=== PATIENT | female | born 1975 | race Asian ===

== ENCOUNTER 2017-12-23 13:05 | Emergency (ER) | payer MEDICAID, OTHER ==
--- NOTE | 2017-12-23 13:08 | ED Physician Chart ---
ED Chief Complaint/HPI - Patient Information Date Seen:: 12/23/17 Time Seen:: 13:08 Chief Complaint:: UTI History of Present Illness:: 42 yo female had headache for 4 days, cough productive of green sputum for 3 weeks. She had body ache, pelvic pain, urinary urgency and frequency for 5 days. She had fever and chills for 1 day. ED Review of Systems - Review of Systems General/Constitutional: Fever, Chills Skin: No bruising Head: Headache Eyes: No pain ENT: No nasal drainage Neck: No neck pain Cardio Vascular: No chest pain Pulmonary: No SOB GI: No nausea, No vomiting G/U: Dysuria, Frequency Musculoskeletal: Muscle pain Psychiatric: Anxiety ED Past Medical History - Past Medical History Past Medical History: No significant medical hx Social History: Smoker, Alcohol, No Drug Use Surgical History: None Psychiatricy History: Other (anxiety) Family Medical History - Family Member Mother History Unknown: Yes ED Physical Exam - Physical Examination General/Constitutional: Awake Head: Atraumatic Eyes: PERRL Skin: No ecchymosis ENMT: Nasal exam nl Neck: No nuchal rigidity Respiratory: Clear to Auscultation Cardio Vascular: RRR, No murmur, gallop, rubs, NL S1 S2 GI: No tenderness/rebounding/guarding Other comments:: CVA percussion tenderness Extremities: normal strength in all extremities Neuro/Psych: No focal deficits ED Labs/Radiology/EKG Results - Radiology Results Results: CXR: no focal consolidation ED Assessment - Assessment General Assessment: UTI Bronchitis Leukocytosis Assessment/Comments:: CBC, CMP, UA CXR DuoNeb Robitussin Tylenol Rocephin IV NS 1L IV bolus D/c home Levaquin 750mg po qd x 7 days F/u PCP or return to ER if symptoms worsen ED Septic Shock - . Is Septic Shock (SBP<90, OR Lactate>4 mmol\L) present?: No ED Reassessment (Disposition) - Reassessment Reassessment Condition:: Improved - Patient Disposition Discharge/Transfer:: Home ED Discharge Plan - Patient Disposition Admit/Discharge/Transfer: PT DISCHARGED HOME Prescriptions: Guaifenesin DM [Robitussin DM] 10 ml PO Q6H PRN #120 ml PRN Reason: Cough Or Congestion Levofloxacin [Levaquin] 750 mg PO DAILY #21 tab Instructions: Urinary Tract Infection
[2017-12-23 13:24] LABS: URINE MICROSCOPIC INDICATED? YES; URINE SOURCE RANDOM
[2017-12-23 13:30] LABS: URINE BILIRUBIN SMALL (NEGATIVE); URINE BLOOD LARGE (NEGATIVE); URINE GLUCOSE (UA) NEGATIVE (NEGATIVE); URINE KETONE NEGATIVE (NEGATIVE); URINE LEUKOCYTE ESTERASE MODERATE (NEGATIVE); URINE NITRATE POSITIVE (NEGATIVE); URINE PH 6.5 (4.6 - 8.0); URINE PROTEIN >=300 mg/dL (NEGATIVE); URINE UROBILINOGEN 0.2 E.U./dL (0.2 - 1.0)
[2017-12-23 13:32] LABS: HEMATOCRIT 37.9 % (41.0-60); HEMOGLOBIN 12.6 gm/dL (12-16); MEAN CELL VOLUME 78.2 fl (81-100); MEAN CORPUSCULAR HEMOGLOBIN 25.9 pg (27.0-31.0); MEAN CORPUSCULAR HGB CONC 33.1 pg (28.0-36.0); MEAN PLATELET VOLUME 7.8 fl; PLATELET COUNT 373 Th/cmm (150-400); RED BLOOD COUNT 4.85 Mil/cmm (3.80-5.10); RED CELL DISTRIBUTION WIDTH 15.2 % (11.5-20.0)
[2017-12-23 13:40] LABS: WHITE BLOOD COUNT 13.7 Th/cmm (4.8-10.8)
[2017-12-23 13:42] LABS: ALB/GLOB RATIO 1.4 (1.0-1.8); ALBUMIN 4.4 gm/dL (3.7-5.3); ALKALINE PHOSPHATASE 57 U/L (34-104); ANION GAP 15.3 (7.0-16.0); BILIRUBIN,TOTAL 0.6 mg/dL (0.3-1.0); BUN - UREA NITROGEN 6 mg/dL (7-25); CALCIUM SERUM 9.3 mg/dL (8.6-10.3); CARBON DIOXIDE 25.5 mEq/L (21.0-31.0); CHLORIDE 100 mEq/L (98-107); CREATININE - SERUM 0.8 mg/dL (0.6-1.2); GFR AFRICAN-AMERICAN > 60.0 ml/min (>90); GFR NON AFRICAN-AMERICAN > 60.0 ml/min; GLUCOSE 170 mg/dL (70-105); POTASSIUM SERUM 3.8 mEq/L (3.5-5.1); SGOT 15 U/L (13-39); SGPT/ALT 13 U/L (7-52); SODIUM SERUM 137 mEq/L (136-145); TOTAL PROTEIN,SERUM 7.5 gm/dL (6.0-8.3); URINE CLARITY CLOUDY (CLEAR); URINE COLOR BROWN
[2017-12-23 13:50] LABS: URINE EPITHELIAL CELLS FEW /lpf (FEW); URINE RBC >100 /hpf (0-5); URINE WBC >100 /hpf (0-5)
[2017-12-23 13:51] LABS: URINE BACTERIA MODERATE /hpf (NONE SEEN)
[2017-12-23 13:55] LABS: BAND NEUTROPHILE 1 % (0-10); LYMPHOCYTE 6 % (20-50); MONOCYTE 3 % (2-10); NEUTROPHILS 90 % (40-80); PLATELET ESTIMATE ADEQUATE (NORMAL); TOTAL CELLS COUNTED 100
[2017-12-23] MEDS ORDERED: cefTRIAXone 1 GM in Sodium Chloride 0.9% 50 ML IV ONE (14:28)
[2017-12-23] MEDS ORDERED: Sodium Chloride 0.9% 1,000 ML IV ONE (14:28)
[2017-12-23] MEDS ORDERED: Albuterol/Ipratropium Neb 3 ML AERS HHN ONE ×2 (14:42→14:51)
[2017-12-23] MEDS ORDERED: Guaifenesin DM 10 ML UDC PO PRN (17:18)
--- NOTE | 2017-12-24 07:45 | Diagnostic Imaging Report ---
CHEST X-RAY: AP view INDICATION: pain COMPARISON: None FINDINGS: There is no focal consolidation or pleural effusions The heart is at the upper limits of normal size. There is mild leftward convexity of the thoracolumbar spine which may be due to positioning versus mild scoliosis. IMPRESSION: No focal airspace consolidation identified.
== END 2017-12-23 17:30 | disposition home or self-care (01) ==
LOC: ER 13:05
DX: N39.0 Urinary tract infection, site not specified (principal); F17.200 Nicotine dependence, unspecified, uncomplicated
CPT/HCPCS: 99285; 94640; 71045; 36415; 83605; 85007; 85027; 87086; 81001; 81025; 80053; 87040; J0696; J7030; Z7610

== ENCOUNTER 2017-12-24 16:02 | Emergency (ER) | payer OTHER ==
--- NOTE | 2017-12-24 21:04 | ER Physician Documentation ---
DATE OF SERVICE: 12/24/2017 HISTORY OF PRESENT ILLNESS: According to the triage nurse said that the patient came here, she was diagnosed to have urinary tract infection. She was given Levaquin and today she said after she took Levaquin, she took Tussin and she took something else also and she felt like her heart was beating faster. Now, she is feeling better. There was no rash. There were no other problems that she could elicit to me. She has no troubled breathing. PAST MEDICAL HISTORY: Urinary tract infection. The rest everything is all in the computer. She was here. No significant allergies are seen. She had bottle of Levaquin with her Tussin with the drops she took. She is not drinking much water. She has some anxiety problems also. REVIEW OF SYSTEMS: A 12-point review of system is essentially the same as yesterday. Nothing new is found. She does not have any panic disorder, but she does get nervous from time to time and she does not drink much fluids. PHYSICAL EXAMINATION: GENERAL: The patient appears to be awake, alert, oriented, not in any acute cardiorespiratory distress. General exam is benign and negative. EXTREMITIES: No edema, no cyanosis, no petechia, no ecchymosis. CHEST: Reveals trachea to be central. Fairly good air entry in both lungs without any rales, rhonchi, or bronchial breathing. ABDOMEN: Soft, benign and negative. On examination of the body, there is no evidence of any rash. No evidence of any itching. No evidence of any allergic reaction on the body neither in the lungs. HEART: Reveals normal heart sounds, so fourth heart sounds. Second heart sound is physiologically split. CENTRAL NERVOUS SYSTEM: Within normal limits. CLINICAL IMPRESSION: The patient said that she had allergy to Levaquin, but I do not find any allergy of any nature. Most likely, she is not drinking enough fluids and this might be secondary to probably some medication, Tussin drugs or something. Today she said she is starting to drink some fluids. So most likely, she is not allergic to any medications, none whatsoever and she is dry and she is told to drink some fluids and go home and there is no allergy detected. OTHER DIAGNOSIS: Possibly she has anxiety. Urinary tract infection. She will be going home. Her admission triage findings was 98.6, pulse is 90, saturation 94%, blood pressure 134/83. JOB# [id number]
== END 2017-12-24 17:45 | disposition home or self-care (01) ==
LOC: ER 16:02
DX: N39.0 Urinary tract infection, site not specified (principal); Z88.1 Allergy status to other antibiotic agents
CPT/HCPCS: Z7502

== ENCOUNTER 2018-11-14 00:19 | Emergency (ER) | payer OTHER ==
[2018-11-14] MEDS ORDERED: Sodium Chloride 0.9% 500 ML IV ONE (00:31)
[2018-11-14 01:00] LABS: % BASOPHILS 0.6 % (0.0-2.0); % EOSINOPHILS 25.6 % (0.0-5.0); % LYMPHOCYTES 27.6 % (20.0-50.0); % MONOCYTES 4.1 % (2.0-10.0); % NEUTROPHILS 42.1 % (40.0-80.0); EOSINOPHILE ABSOLUTE 1.3 Th/cmm (0.1-0.4); HEMATOCRIT 30.2 % (41.0-60); HEMOGLOBIN 9.6 gm/dL (12-16); LYMPHOCYTE ABSOLUTE 1.4 Th/cmm (1.5-3.0); MEAN CELL VOLUME 72.6 fl (81-100); MEAN CORPUSCULAR HEMOGLOBIN 23.2 pg (27.0-31.0); MEAN CORPUSCULAR HGB CONC 31.9 pg (28.0-36.0); MEAN PLATELET VOLUME 7.5 fl; MONOCYTE ABSOLUTE 0.2 Th/cmm (0.3-1.0); NEUTROPHILE ABSOLUTE 2.3 Th/cmm (1.8-8.0); PLATELET COUNT 397 Th/cmm (150-400); RED BLOOD COUNT 4.16 Mil/cmm (3.80-5.10); WHITE BLOOD COUNT 5.2 Th/cmm (4.8-10.8)
[2018-11-14 01:08] LABS: INR 0.91 (0.5-1.4); PROTHROMBIN TIME (TEST) 9.5 SECONDS (9.5-11.5)
--- NOTE | 2018-11-14 01:12 | ED Physician Chart ---
ED Chief Complaint/HPI - Patient Information Date Seen:: 11/14/18 Time Seen:: 00:20 Chief Complaint:: Dizziness History of Present Illness:: onset x one day of dizziness, intermittent, dull, diffuse H/As, sinus H/As, congestion, dry cough, flank pain, near-syncope, vertigo, and palpitations; pt denies trauma, LOC, ALOC, SIs, AMS, syncope, hearing loss, E/As, tinnitus, visual or gait changes, neck pain, C/P, SOB, Abd. 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 ; LNMP: 11/07/18; pt denies Allergies:: Allergies Allergy/AdvReac Type Severity Reaction Status Date / Time camphor [From Vicks Vaporub] Allergy Verified 12/23/17 13:18 eucalyptus Allergy Verified 12/23/17 13:18 [From Vicks Vaporub] menthol [From Vicks Vaporub] Allergy Verified 12/23/17 13:18 petrolatum,white Allergy Verified 12/23/17 13:18 [From Vicks Vaporub] turpentine oil Allergy Verified 12/23/17 13:18 [From Vicks Vaporub] Vitals:: Vital Signs - 8 hr 11/14/18 00:20 Temp 98.5 F HR 81 RR 18 BP 144/101 O2 Sat % 98 Historian:: Patient Review:: Nurse's Note Reviewed, Old Chart Reviewed ED Review of Systems - Review of Systems General/Constitutional: No fever, No chills, No weight loss, No weakness, No diaphoresis, No edema, No loss of appetite Skin: No skin lesions, No rash, No bruising Head: Headache, Light headed Eyes: No loss of vision, No pain, No diplopia ENT: No earache, No nasal drainage, No sore throat, No tinnitus Neck: No neck pain, No swelling, No thyromegaly, No stiffness, No mass noted Cardio Vascular: No chest pain, Palpitations, No PND, No orthopnea, No edema Pulmonary: SOB, Cough, No sputum, No wheezing GI: No nausea, No vomiting, No diarrhea, No pain, No melena, No hematochezia, No constipation, No hematemesis G/U: No dysuria, No frequency, No hematuria, No nacturia Dip Tanker: No vaginal discharge, No abnormal vaginal bleed, No contraction Musculoskeletal: No bone or joint pain, Back pain, No muscle pain Endocrine: No polyuria, No polydipsia Psychiatric: No prior psych history, No depression, Anxiety, No suicidal ideation, No homicidal ideation, No auditory hallucination, No visual hallucination Hematopoietic: No bruising, No lymphadenopathy Allergic/Immuno: No urticaria, No angioedema Neurological: No syncope, No focal symptoms, No weakness, No paresthesia, Headache, No seizure, Dizziness, No confusion, Vertigo ED Past Medical History - Past Medical History Obtainable: Yes Past Medical History: Other (Anxiety Disorder) Family History: HTN Social History: Non Smoker, No Alcohol, No Drug Use, Surgical History: None Psychiatricy History: None Medication: Reviewed Family Medical History - Family Member Mother History Unknown: Yes ED Physical Exam - Physical Examination General/Constitutional: Awake, Well-developed, well-nourished, Alert, No distress, GCS 15, Non-toxic appearing, Ambulatory Head: Atraumatic Eyes: Lids, conjuctiva normal, PERRL, EOMI Other Eyes comments:: PERRLA; Fundi: benign; EOMs: WNL Skin: Nl inspection, No rash, No skin lesions, No ecchymosis, Well hydrated, No lymphadenopathy ENMT: External ears, nose nl, TM canals nl, Nasal exam nl, Lips, teeth, gums nl , Oropharynx nl, Tonsils nl Other ENMT comments:: TMJs: WNL; + Maxillary Sinus Tenderness; + Nasal Congestion Neck: Nontender, Full ROM w/o pain, No JVD, No nuchal rigidity, No bruit, No mass, No stridor Other Neck comments:: supple; no meningeal signs; no cervical tenderness; no bruits Respiratory: Nl effort/Exclusion, Clear to Auscultation, No Wheeze/Rhonchi/Rales Cardio Vascular: RRR, No murmur, gallop, rubs, NL S1 S2, Carotid/Femoral/Distal pulses equal bilaterally GI: No tenderness/rebounding/guarding, No organomegaly, No hernia, Normal BS's, Nondistended, No mass/bruits, No McBurney tenderness, Rectum exam nl Other GI comments:: no pulsatile masses; good BS : No CVA tenderness Extremities: No tenderness or effusion, Full ROM, normal strength in all extremities, No edema, Normal digits & nails Neuro/Psych: Alert/oriented, DTR's symmetric, Normal sensory exam, Normal motor strength, Judgement/insight normal, Mood normal, Normal gait, No focal deficits Other Neuro/Psych comments:: no focal signs Misc: Normal back, No paraspinal tenderness ED Labs/Radiology/EKG Results - Lab Results Comments:: Reviewed - Radiology Results Comments:: CXR: NAD; Head CT Scan: + Sinusitis - EKG Interpretations EKG Time:: 00:51 Rate & Rhythm: 61; NSR Comments:: LVH; LAE; non-specific st-t changes ED Septic Shock - . Is Septic Shock (SBP<90, OR Lactate>4 mmol\L) present?: No - <6hrs of presentation: Vital Signs: Vital Signs - 8 hr 11/14/ 00:20 Temp 98.5 F HR 81 RR 18 BP 144/101 O2 Sat % 98 ED Reassessment (Disposition) - Reassessment Reassessment:: pt tolerated po fluids well in ER; pt is asymptomatic upon discharge Reassessment Condition:: Improved - Diagnosis Diagnosis:: Dizziness; Near-Syncope; Vertigo; Anxiety Disorder; UTI; Congestion; Headaches; Sinusitis; Cough; Bronchitis; Fever; URI; Labyrinthritis; Vascular Cephalgia; - Aftercare/Follow up Instructions Aftercare/Follow-Up Instructions:: Counseled pt regarding lab results/diagnosis & need follow up, Refer to Discharge Instructions, Counseled pt & family regarding lab results/diagnosis & need follow up Medication Prescribed:: Rx: Amoxicillin 500mg po tid x 10 days; Tylenol 500mg po qid prn fever/Headaches /pain; Cool Mist Vaporizer; Fluids; Take all medications as prescribed - Patient Disposition Discharge/Transfer:: Home Condition at Disposition:: Stable, Improved (X-Rays Instructions; RTER prn if existing s/s reoccur and/or get worse and/or any other new s/s occur; ACIs given for all above Dx; Refer to Master Control Supervisor/ENT Specialist/Neurologist/ Urologist/Psychiatrist/Scleroscope Tester MIRTHA; F/U with PMD in one day or prn; RTER prn if concerned)
[2018-11-14 01:14] LABS: ALB/GLOB RATIO 1.4 (1.0-1.8); ALBUMIN 3.8 gm/dL (3.7-5.3); ALKALINE PHOSPHATASE 38 U/L (34-104); AMYLASE SERUM 50 U/L (29-103); ANION GAP 13.7 (7.0-16.0); BILIRUBIN,TOTAL 0.3 mg/dL (0.3-1.0); BUN - UREA NITROGEN 8 mg/dL (7-25); CALCIUM SERUM 9.1 mg/dL (8.6-10.3); CARBON DIOXIDE 24.9 mEq/L (21.0-31.0); CHLORIDE 102 mEq/L (98-107); CHOLESTEROL 191 mg/dL (<200); CREATININE - SERUM 0.6 mg/dL (0.6-1.2); CREATININE KINASE 72 U/L (30-223); GFR AFRICAN-AMERICAN > 60.0 ml/min (>90); GFR NON AFRICAN-AMERICAN > 60.0 ml/min; GLUCOSE 93 mg/dL (70-105); HDL -HIGH DENSITY LIPOPROTEIN 74 mg/dL (23-92); LIPASE 35 U/L (11-82); POTASSIUM SERUM 3.6 mEq/L (3.5-5.1); SGOT 14 U/L (13-39); SGPT/ALT 9 U/L (7-52); SODIUM SERUM 137 mEq/L (136-145); TOTAL PROTEIN,SERUM 6.5 gm/dL (6.0-8.3); TRIGLYCERIDES 163 mg/dL (<150)
[2018-11-14 01:20] LABS: URINE SOURCE CLEAN C
[2018-11-14 01:22] LABS: URINE BILIRUBIN NEGATIVE (NEGATIVE); URINE BLOOD NEGATIVE (NEGATIVE); URINE GLUCOSE (UA) NEGATIVE (NEGATIVE); URINE KETONE NEGATIVE (NEGATIVE); URINE LEUKOCYTE ESTERASE TRACE (NEGATIVE); URINE MICROSCOPIC INDICATED? YES; URINE NITRATE NEGATIVE (NEGATIVE); URINE PROTEIN NEGATIVE (NEGATIVE); URINE UROBILINOGEN 0.2 E.U./dL (0.2 - 1.0)
[2018-11-14 01:33] LABS: URINE CLARITY SL. HAZY (CLEAR); URINE COLOR STRAW
[2018-11-14 01:37] LABS: URINE RBC NONE SEEN /hpf (0-5)
[2018-11-14 01:38] LABS: URINE BACTERIA NONE SEEN /hpf (NONE SEEN); URINE EPITHELIAL CELLS OCCASIONAL /lpf (FEW)
[2018-11-14 01:48] LABS: NEUTROPHILS 58 % (40-80)
[2018-11-14 01:49] LABS: BAND NEUTROPHILE 6 % (0-10); EOSINOPHIL 2 % (0-5); LYMPHOCYTE 26 % (20-50); MONOCYTE 8 % (2-10)
[2018-11-14] MEDS ORDERED: cefTRIAXone 1 GM in Sodium Chloride 0.9% 50 ML IV ONE (02:02)
[2018-11-14] MEDS ORDERED: Acetaminophen 500 MG TAB ONE (03:50)
--- NOTE | 2018-11-14 07:59 | Diagnostic Imaging Report ---
Head CT without intravenous contrast Indication: Dizziness Comparison: None Technique: Axial images were obtained from the vertex to the skull base without IV contrast. Coronal reconstructions were made. Total DLP: 731, [id number] FINDINGS: Images of the brain obtained without contrast demonstrate no acute hemorrhage. No mass lesions identified. The ventricles and basal cisterns are patent. The brush-white matter differentiation is preserved. There is no mass effect or midline shift. No skull fractures identified. No soft tissue swelling. The small air-fluid level is seen within left maxillary sinus. IMPRESSION: No acute intracranial abnormality. Small air-fluid level in the left maxillary sinus. Please correlate clinically for possible sinusitis.
== END 2018-11-14 04:06 | disposition home or self-care (01) ==
LOC: ER 00:19
DX: R55 Syncope and collapse (principal); R42 Dizziness and giddiness; F41.9 Anxiety disorder, unspecified; N39.0 Urinary tract infection, site not specified; J40 Bronchitis, not specified as acute or chronic; J06.9 Acute upper respiratory infection, unspecified; D64.9 Anemia, unspecified; G44.1 Vascular headache, not elsewhere classified; H83.09 Labyrinthitis, unspecified ear; J32.9 Chronic sinusitis, unspecified; Z91.048 Other nonmedicinal substance allergy status
CPT/HCPCS: 99284; 96365; 96375; 93005; 70450; 84484; 83880; 36415; 85007; 85025; 85610; 87086; 81001; 82150; 82550; 84703; 81025; 83690; 80053; 80061; J2405; J0696; J7040; Z7502; Z7610